=== PATIENT | female | born 1980 | race Caucasian/White ===

== ENCOUNTER → 2019-04-10 | Outpatient (CLI) | payer BC ==
--- NOTE | 2019-04-10 10:07 | RAD ---
EXAM DESCRIPTION: Pelvis, single view CLINICAL HISTORY: PAIN IN RIGHT HIP FINDINGS/ IMPRESSION: Normal mineralization. No advanced arthrosis or focal osteochondral lesion of the hips. 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
--- NOTE | 2019-04-11 09:05 | RAD ---
EXAM DESCRIPTION: Knee,Right 1 or 2 Views CLINICAL HISTORY: 38 years Female, PAIN IN RIGHT KNEE TECHNIQUE: 2 views of the right knee were performed. COMPARISON: Radiographs the right knee dated 03/27/2019. FINDINGS: No acute fracture is identified in the right knee on the lateral and sunrise radiographs. IMPRESSION: No acute fracture is identified in the right knee on the lateral and sunrise radiographs. Electronically signed by: Brabara Cuellar MD 04/11/2019 9:04 AM CDT
== END ==
LOC: RAD 08:34
PROVIDERS: ATTEND Orthopaedic Surgery
DX: M25.551 Pain in right hip (principal); M47.898 Other spondylosis, sacral and sacrococcygeal region; M25.561 Pain in right knee

== ENCOUNTER → 2019-04-17 | Outpatient (CLI) | payer BC ==
--- NOTE | 2019-04-17 09:34 | MRI ---
Study: MRI of the Right Knee. Indication: OTHER TEAR OF MEDIAL MENISCUS RIGHT KNEE Technique: Multiplanar, multi sequence MRI of the right knee was obtained without intravenous contrast. Comparison: None. Findings: ACL, PCL, and lateral collateral ligament intact. MCL is lax and bowed indicating sequela of a prior MCL sprain. No acute tear. A bucket-handle tear of the medial meniscus noted and predominantly involving the posterior horn/body with the handle flipped laterally into the intercondylar notch. Multilobulated para meniscal cyst formation noted superficial to the posterior horn and body with the dominant component measuring up to 15 mm. Lateral meniscus intact. Mild subchondral marrow change at the anterolateral margin medial femoral condyle which may indicate occult overlying occult chondral loss. No high-grade chondral defect lateral compartment. Tendinosis quadriceps insertion. Patellar tendon intact. Patella normally located. Patchy grade 2 chondrosis throughout the patella. Moderate size knee effusion. No acute fracture. Tiny partially ruptured Mckeon's cyst. Red marrow reconversion throughout the knee. Impression: Bucket-handle tear of the medial meniscus as detailed above. Subtle subchondral marrow change anterolateral margin medial femoral condyle with suspected occult overlying chondrosis. Tendinosis quadriceps tendon insertion. Patchy grade 2 chondrosis throughout the patella. Moderate size knee effusion. Electronically signed by: Ender Figueroa MD 04/17/2019 9:32 AM DESOLDERER
== END ==
LOC: MRI 07:50
PROVIDERS: ATTEND Orthopaedic Surgery
DX: S83.241A Other tear of medial meniscus, current injury, right knee, initial encounter (principal); M76.899 Other specified enthesopathies of unspecified lower limb, excluding foot; M22.41 Chondromalacia patellae, right knee

== ENCOUNTER → 2019-04-21 | Outpatient (CLI) | payer BC | LOC: LAB.O 08:35 | PROVIDERS: ATTEND Orthopaedic Surgery | DX: Z01.818 Encounter for other preprocedural examination (principal) ==

== ENCOUNTER → 2019-05-03 | Day surgery (SDC) | payer BC ==
--- NOTE | 2019-05-01 09:17 | HP ---
CHIEF COMPLAINT: Right knee pain. HISTORY OF PRESENT ILLNESS: Esperanza is a 38-year-old female with a history of pain in the right knee. She has had pain going on for over 6 weeks. She has had injections, however, has failed to gain relief. She has had MRI which has revealed a tear of the meniscus. She has pain that radiates up to a 9 in intensity and she is not getting any relief with conservative measures. She has had use of anti-inflammatories, activity modification, injection and continues to have pain. The pain is limiting her activities on a daily basis. Because of her ongoing symptoms and failure of conservative measures, she has requested operative intervention. After discussing the risks, benefits and alternatives to that, she has given informed consent. PAST SURGICAL HISTORY: 1. Knee arthroscopy. 2. Shoulder surgery. 3. Right breast surgery. 4. Thumb surgery. MEDICATIONS: None. PAIN CONTRACT: None. ALLERGIES: FLU VACCINE, LATEX. CODE STATUS: Full code. IMMUNIZATIONS: Up to date. SOCIAL HISTORY: The patient smokes about half a pack a day, drinks occasionally, but uses no illicit drugs. FAMILY HISTORY: None pertinent to today's complaint. REVIEW OF SYSTEMS: Negative except as indicated in the History of Present Illness. HEENT: The patient reports no symptoms. RESPIRATORY: The patient reports no symptoms. CARDIOVASCULAR: The patient reports no symptoms. GASTROINTESTINAL: The patient reports no symptoms GENITOURINARY: The patient reports no symptoms. MUSCULOSKELETAL: Negative except as noted in History of Present Illness. SKIN: The patient reports no symptoms. NEUROLOGIC: The patient reports no symptoms. PHYSICAL EXAMINATION: VITAL SIGNS: Blood pressure 156/106. Pulse 80. Height 5'6". Weight 173 pounds. MENTAL STATUS: The patient is awake, alert, and is able to give a good history and participate in the physical. The patient is oriented to person, place and time. SKIN: Normal tone and turgor. HEENT: Normocephalic, atraumatic. Pupils equal, round and reactive. Mucosal membranes are moist. NECK: Normal range of motion. No thyromegaly, no lymphadenopathy. CHEST: Normal respiratory excursion. CARDIAC: Regular rate and rhythm. No murmurs, rubs or gallops. MUSCULOSKELETAL: Bilateral upper extremities have full active range of motion. She has intact sensation. Both extremities are warm and well perfused. She has no laxity, no crepitus, no malalignment and no deformity. The left lower extremity shows full range of motion of the hip, knee, ankle and digits. She has intact sensation throughout. They are warm and well perfused. She has no varus or valgus laxity. She has no malalignment. The right lower extremity shows full range of motion of the hip, ankle and digits. She has intact sensation. Strength is 5/5. There is no malalignment and no deformity. She has severe pain along the medial joint-line. She has positive clicking. She has primary care physician Rylan. She has no varus or valgus laxity. She has a negative anterior and negative posterior drawer. She does have some crepitus and pain with range of motion of the knee and patellar mobilization. RADIOLOGY: MRI does show a tear of the meniscus. X-ray show no acute bony abnormality. ASSESSMENT: 1. Meniscus tear. PLAN: The plan at this point is for knee arthroscopy with likely partial meniscectomy. We have discussed the risks, benefits, and alternatives to that and the patient has given informed consent. #[id number] [facility]
--- NOTE | 2019-05-01 10:22 | RAD ---
EXAM DESCRIPTION: Chest,2 Views CLINICAL HISTORY: PREOP COMPARISON: None TECHNIQUE: PA/lateral FINDINGS: There is no acute appearing cardiac or pulmonary abnormality. Heart size is normal with normal pulmonary vascularity. No pleural effusion or pneumothorax. Lungs are clear with no consolidating infiltrate. Lateral view shows intact sternum and T-spine. IMPRESSION: No acute process is identified in the chest. Electronically signed by: Pilo Durant MD 05/01/2019 10:20 AM LEGAL INVESTIGATOR
== END ==
LOC: AMB 05:06
PROVIDERS: ATTEND Orthopaedic Surgery
DX: Z01.818 Encounter for other preprocedural examination (principal); S83.241A Other tear of medial meniscus, current injury, right knee, initial encounter; Z87.891 Personal history of nicotine dependence

== ENCOUNTER → 2019-06-20 | Outpatient (CLI) | payer BC | LOC: LAB.O 08:37 | PROVIDERS: ATTEND Orthopaedic Surgery | DX: Z01.818 Encounter for other preprocedural examination (principal) ==

== ENCOUNTER 2019-06-28 05:28 | Day surgery (SDC) | payer BC ==
[2019-06-28] MEDS ORDERED: VANCOMYCIN HCL INJ 1,000 MG VIAL IVPB ONE ×2 (06:30→07:10)
[2019-06-28] MEDS ORDERED: BUPIVACAINE 0.5% 30 ML VIAL INJ ONE ×2 (06:30→07:10)
[2019-06-28] MEDS ORDERED: ceFAZolin SODIUM 1 GM VIAL ONE ×3 (06:30→06:46)
[2019-06-28] MEDS ORDERED: BUPIVACAINE LIPOSOME 13.3 MG/ML VIAL INJ ONE ×2 (06:31→07:10)
[2019-06-28] MEDS ORDERED: LACTATED RINGERS 1,000 ML ONE (06:46)
[2019-06-28] MEDS ORDERED: SODIUM CHL 0.9% 100ML MINI-BAG 100 ML IVPB ONE (06:46)
[2019-06-28] MEDS ORDERED: KETAMINE HCL 100 MG/ML VIAL ONE (06:48)
[2019-06-28] MEDS ORDERED: DEXMEDETOMIDINE HCL 200 MCG/2 ML INJ IV ONE (06:48)
[2019-06-28] MEDS ORDERED: MIDAZOLAM INJ 5 MG/5 ML VIAL ONE (06:48)
[2019-06-28] MEDS ORDERED: fentaNYL CITRATE INJ 50 MCG/ML AMP ONE (06:48)
[2019-06-28] MEDS ORDERED: LACTATED RINGERS 1,000 ML IVS ONE (06:50)
[2019-06-28] MEDS ORDERED: ceFAZolin SODIUM 1 GM VIAL IRRIG ONE (07:10)
[2019-06-28] MEDS: traMADol HCL 50 MG TAB ONE ×2 (09:30→10:53)
[2019-06-28] MEDS ORDERED: LIDOCAINE 1% 10 ML VIAL INJ ONE (10:00)
[2019-06-28] MEDS ORDERED: raNITIdine HCL INJ 25 MG/ML VIAL IV ONE (10:00)
[2019-06-28] MEDS ORDERED: PROPOFOL 200 MG/20 ML VIAL IV ONE (10:00)
[2019-06-28] MEDS ORDERED: KETOROLAC TROMETHAMINE INJ 30 MG/ML VIAL IV ONE (10:00)
[2019-06-28] MEDS ORDERED: ePHEDrine SULF 50 MG/ML IV ONE (10:00)
[2019-06-28] MEDS ORDERED: DEXAMETHASONE INJ 10 MG/ML VIAL IV ONE (10:00)
[2019-06-28 10:23] VITALS: BP 130/84; TEMP 98.2; O2SAT 99
--- NOTE | 2019-06-29 08:18 | OP ---
DATE OF PROCEDURE: 06/28/19 PREOPERATIVE DIAGNOSIS: 1. Meniscus tear of right knee. POSTOPERATIVE DIAGNOSIS: 1. Meniscus tear of right knee. 2. Chondromalacia. PROCEDURE: 1. Partial meniscectomy. SURGEON: Mian Tse MD. WASHCOAT WIPER: Ji Warner CST, SA-C. ANESTHESIA: General anesthesia. COMPLICATIONS: None. FINDINGS: 1. Bucket handle tear of the medial meniscus. 2. Chondromalacia of the medial femoral condyle with grade 1 softening. 3. Normal ACL and normal PCL. 4. Normal lateral compartment. 5. Normal lateral gutter. 6. Normal suprapatellar pouch. 7. Normal patellofemoral joint. 8. Normal medial gutter. INDICATION: Esperanza has a history of severe knee pain that has been associated with mechanical symptoms. Because of her mechanical symptoms and failure of conservative measures, she has requested operative intervention. After discussing the risks, benefits and alternatives to that, the patient has given informed consent for knee arthroscopy. PROCEDURE: The patient was brought to the Operating Room and placed in supine position. General anesthesia was induced and the patient's leg was sterilely prepped and draped. Following prepping and draping, standard anteromedial and anterolateral portals were established. Diagnostic arthroscopy was carried out with the above findings. Attention was then focused on the medial compartment where a 3.5 mm full radius shaver was used to debride the medical meniscus. It was thoroughly probed and found to be stable. The knee was thoroughly irrigated. The wounds were closed with Nylon suture. Sterile dressings were placed. The patient was awoken from anesthesia and taken to Recovery. POSTOPERATIVE PLAN: The patient will be limited with regards to her weightbearing and will followup with us in two days. #[id number] [facility]
== END 2019-06-28 10:10 | disposition home or self-care (01) ==
LOC: AMB 05:28
PROVIDERS: ATTEND Orthopaedic Surgery
DX: S83.211A Bucket-handle tear of medial meniscus, current injury, right knee, initial encounter (principal); M94.261 Chondromalacia, right knee; F17.210 Nicotine dependence, cigarettes, uncomplicated; Z88.7 Allergy status to serum and vaccine; Z91.040 Latex allergy status; Z90.710 Acquired absence of both cervix and uterus; Z79.899 Other long term (current) drug therapy
CPT/HCPCS: 01400; 29881; 36415; 80048; 80307; 85025; J0690; J1100; J1885; J2250; J2780; J3370; J3490; J7050; J7120